=== PATIENT | female | born 1935 | race Caucasian/White ===

== ENCOUNTER → 2020-07-10 12:38 | Outpatient (CLI) | payer MEDICARE, OTHER, SELFPAY ==
--- NOTE | 2020-07-10 12:41 | DI.RAD.S_ITS ---
PROCEDURE: FL BARIUM SWALLOW W SPEECH INDICATIONS: Choking COMPARISON: None. TECHNIQUE: Examination was conducted in conjunction with speech pathology per standard protocol. In the lateral projection, filming was performed of the patient swallowing. AP projection filming may also be performed with patient swallowing. COMPARISON: FINDINGS: Function: The oral preparatory phase appears normal, with proper containment. The subsequent oral propulsive phase, pharyngeal phase, and esophageal phase of swallowing also appear normal with all proffered substances except for the presence of slight episodiic laryngotracheal penetration without aspiration. No pathologic vallecular pooling. Morphology: No cricopharyngeal bar is identified. No cervical esophageal webs. No Zenker's diverticulum. No strictures. IMPRESSION: Slight episodic anterior penetration without aspiration was noted during the course of the evaluation, but otherwise the examination appeared normal. Please also refer to the dedicated speech therapy swallowing evaluation report which will be independently generated. Dictated by: Manav Andrews M.D. on 07/10/2020 at 13:59 Approved by: Manav Andrews M.D. on 07/10/2020 at 14:01
--- NOTE | 2020-07-10 15:45 | ST.SWALLOW ---
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 Kenji Valle Reason for Referral Choking Setting Setting Outpatient Care Patient Information Identification Type Name,ID Card Patient History The pt is an 84-yr-old female with diagnosis of dementia who lives at home with her . Per 's report, the pt visited Dr. Valle to establish care and was observed by Dr. Valle to have some coughing with oral intake. reported no significant swallow difficulty at home but increasing SOB both with and without oral intake. He stated that the pt eats very little, only 1 meal/ day and a few snacks. Due to missing and broken teeth, she consumes soft foods. Subjective Observations The pt arrived on time and was brought into radiology room. She was unaware of why she was there and, when explained, denied swallow difficulties. She was unable to provide any other meaningful history. Her was consulted for case history and provided the details outlined above. The pt was informed of MBS procedures and was agreeable to proceed. Patient Positioning Position View Lateral Imaging Lateral View Textures Administered Trials Presented Thin Liquid via Spoon,Thin Liquid via Cup,[place] Liquid via Spoon,[place] Liquid via Cup,Honey Liquid via Spoon, Dysphagia Blenderized Textures ,Regular Textures Oral Phase Source: MBSIMP (TM) (C) Bolus Specific Scoring Grid Lip Closure WFL Tongue Control During Bolus Hold WFL Bolus Prep/Mastication Mild Impairment Bolus Transport/Lingual Motion WFL A/P Lingual Propulsion Delay No: Rapid Oral Residue Mild Impairment Residue Clearing WFL Nasal Regurgitation No Additional Oral Phase Observations Oral Peripheral Exam: Symmetrical features, mildly reduced strength and coordination consistent with age. The pt had difficulty following some directions but was able to with visual demonstration. The pt is missing several molars and others are broken. Her is aware and trying to schedule with her dentist. The pt did exhibit SOB with quick , shallow breaths throughout the study. Oral Phase: Pt has rapid a/p transfer of bolus. Bolus manipulation and formation appear to be WNL. Lingual rocking was observed after most trials, which may be the pt's attempt to manage oral residue, which was greatest with liquids and spilled to vallecula and occasionally to pyriform sinuses (thin liquid) . The pt did not independently initiate additional swallow of residue. No pocketing was observed. Mastication of cookie was WFL and appropriate given status of dentition. Pharyngeal Phase Source: MBSIMP (TM) (C) Bolus Specific Scoring Grid Delayed Initiation of Pharyngeal Swallow Yes: Greatest with thin and NTLs; improved w/ bolus bulk Soft Palate Elevation No Impairment (WNL) Tongue Base Strength/Range of Motion Mild Impairment Residue Along the Tongue Base Yes Clearance of Residue Along Tongue Base WFL Laryngeal Elevation WFL Anterior Hyoid Movement Minimal Impairment Epiglottic Range of Motion No Impairment (WNL) Vallecular Residue Yes: Greatest with liquids Clearance of Vallecular Residue WFL Laryngeal Vestibular Closure Mild Impairment Pharyngeal Stripping Wave WFL Posterior Pharyngeal Wall Residue Yes: Trace with liquids Clearance of Posterior Pharyngeal Wall WFL Residue Upper Esophageal Sphincter Opening No Impairment (WNL) Residue in the Pyriform Sinuses Yes: Greatest with liquids Clearance of Residue in the Pyriform WFL Sinuses Pharyngoesophageal Backflow Observed No Additional Pharyngeal Phase Observations Cricopharyngeal bar observed upon close video review; does not impede bolus flow. Flash penetration above the VFs (PAS 2) was observed with thin liquids during swallows. No residue remained in larynx after each swallow was completed, and no tracheal aspiration was observed. Pharyngeal residue was greatest with thin liquids, filling the vallecula from the oral cavity and once spilling to pyriform sinuses. No swallow reflex was triggered in the pt. Upon being cued to swallow, she did so, and this cleared all but trace amounts of residue. Swallow trigger was also delayed with thin liquids and NTLs; improved to WNL with increased bolus bulk. A/P View Clinical Impressions Dysphagia Type Mild Oropharyngeal Dysphagia Findings The pt presents with mild oropharyngeal dysphagia most likely secondary to age and reduced cognition. Oral dysphagia is secondary to poor dentition and characterized by slowed by functional mastication, mild oral residue . The pt exhibited lingual rocking/pumping after swallows , which may be in response to oral residue, breathing patterns, or simply an unconscious habitual movement sometimes observed with dementia. Pharyngeal swallow phase is characterized by delayed swallow trigger and incomplete closure of the laryngeal vestibule allowing for flash penetration of thin liquids. Closure appears to be adequate for increased bulk of thickened liquids and solids. Mild-moderate residue, particularly with thin and nectar-thick liquids, was observed and cleared with subsequent swallow, although the pt did not initiate such swallow independently. This could increase her risk of aspiration of pharyngeal residue. Prompts for double swallow is recommended. Given her cognitive status, the pt is not a good candidate for therapy; however, caregiver education and training in prompting of compensatory strategies and aspiration precautions may be beneficial to maintain the pt' s safety with oral intake. Rehabilitation Potential Fair Patient Appropriate for Therapy Caregiver training may be appropriate. Recommendations Diet Liquids Order Thin Diet Order Mechanical Soft Medication Recommendation As Tolerated Additional Dietary Needs 1:1 Supervision,Reminders to Use Strategies Aspiration Precautions Recommended Precautions Upright at 90 Degrees,Frequent Rest Periods,Small Bites/Sips ,Double Swallow Treatment Plan Therapy Recommendations Outpatient Speech Therapy Additional Therapy Recommendations Training in compensatory swallow strategies to pt/ caregiver Compensatory Strategies Recommendations Double Swallow,Small Bites and Sips Short Term Goals 1. The pt will perform compensatory swallow strategies (e.g., small bites/ sips, double swallow) with min -mod v/v cues to reduce risk of aspiration. 2. The pt's primary caregiver/ spouse will verbalize understanding of aspiration risks/precautions and demonstrate appropriate pt cuing of such to maintain/ improve pt safety with oral intake in her functional environment. [facility] Goals 1. With prompts provided as needed, the pt will safely tolerate least restrictive diet to meet her nutrition and hydration needs. Placement Recommendation After Discharge Home
--- NOTE | 2020-07-11 15:39 | ST.SWALLOW ---
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 Kenji Valle Reason for Referral Choking Setting Setting Outpatient Care Patient Information Identification Type Name,ID Card Patient History The pt is an 84-yr-old female with diagnosis of dementia who lives at home with her . Per 's report, the pt visited Dr. Valle to establish care and was observed by Dr. Valle to have some coughing with oral intake. reported no significant swallow difficulty at home but increasing SOB both with and without oral intake. He stated that the pt eats very little, only 1 meal/ day and a few snacks. Due to missing and broken teeth, she consumes soft foods. Subjective Observations The pt arrived on time and was brought into radiology room. She was unaware of why she was there and, when explained, denied swallow difficulties. She was unable to provide any other meaningful history. Her was consulted for case history and provided the details outlined above. The pt was informed of MBS procedures and was agreeable to proceed. Patient Positioning Position View Lateral Imaging Lateral View Textures Administered Trials Presented Thin Liquid via Spoon,Thin Liquid via Cup,[place] Liquid via Spoon,[place] Liquid via Cup,Honey Liquid via Spoon, Dysphagia Blenderized Textures ,Regular Textures Oral Phase Source: MBSIMP (TM) (C) Bolus Specific Scoring Grid Lip Closure WFL Tongue Control During Bolus Hold WFL Bolus Prep/Mastication Mild Impairment Bolus Transport/Lingual Motion WFL A/P Lingual Propulsion Delay No: Rapid Oral Residue Mild Impairment Residue Clearing WFL Nasal Regurgitation No Additional Oral Phase Observations Oral Peripheral Exam: Symmetrical features, mildly reduced strength and coordination consistent with age. The pt had difficulty following some directions but was able to with visual demonstration. The pt is missing several molars and others are broken. Her is aware and trying to schedule with her dentist. The pt did exhibit SOB with quick , shallow breaths throughout the study. Oral Phase: Pt has rapid a/p transfer of bolus. Bolus manipulation and formation appear to be WNL. Lingual rocking was observed after most trials, which may be the pt's attempt to manage oral residue, which was greatest with liquids and spilled to vallecula and occasionally to pyriform sinuses (thin liquid) . The pt did not independently initiate additional swallow of residue. No pocketing was observed. Mastication of cookie was WFL and appropriate given status of dentition. Pharyngeal Phase Source: MBSIMP (TM) (C) Bolus Specific Scoring Grid Delayed Initiation of Pharyngeal Swallow Yes: Greatest with thin and NTLs; improved w/ bolus bulk Soft Palate Elevation No Impairment (WNL) Tongue Base Strength/Range of Motion Mild Impairment Residue Along the Tongue Base Yes Clearance of Residue Along Tongue Base WFL Laryngeal Elevation WFL Anterior Hyoid Movement Minimal Impairment Epiglottic Range of Motion No Impairment (WNL) Vallecular Residue Yes: Greatest with liquids Clearance of Vallecular Residue WFL Laryngeal Vestibular Closure Mild Impairment Pharyngeal Stripping Wave WFL Posterior Pharyngeal Wall Residue Yes: Trace with liquids Clearance of Posterior Pharyngeal Wall WFL Residue Upper Esophageal Sphincter Opening No Impairment (WNL) Residue in the Pyriform Sinuses Yes: Greatest with liquids Clearance of Residue in the Pyriform WFL Sinuses Pharyngoesophageal Backflow Observed No Additional Pharyngeal Phase Observations Cricopharyngeal bar observed upon close video review; does not impede bolus flow. Flash penetration above the VFs (PAS 2) was observed with thin liquids during swallows. No residue remained in larynx after each swallow was completed, and no tracheal aspiration was observed. Pharyngeal residue was greatest with thin liquids, filling the vallecula from the oral cavity and once spilling to pyriform sinuses. No swallow reflex was triggered in the pt. Upon being cued to swallow, she did so, and this cleared all but trace amounts of residue. Swallow trigger was also delayed with thin liquids and NTLs; improved to WNL with increased bolus bulk. A/P View Clinical Impressions Dysphagia Type Mild Oropharyngeal Dysphagia Findings The pt presents with mild oropharyngeal dysphagia most likely secondary to age and reduced cognition. Oral dysphagia is secondary to poor dentition and characterized by slowed by functional mastication, mild oral residue . The pt exhibited lingual rocking/pumping after swallows , which may be in response to oral residue, breathing patterns, or simply an unconscious habitual movement sometimes observed with dementia. Pharyngeal swallow phase is characterized by delayed swallow trigger and incomplete closure of the laryngeal vestibule allowing for flash penetration of thin liquids. Closure appears to be adequate for increased bulk of thickened liquids and solids. Mild-moderate residue, particularly with thin and nectar-thick liquids, was observed and cleared with subsequent swallow, although the pt did not initiate such swallow independently. This could increase her risk of aspiration of pharyngeal residue. Prompts for double swallow is recommended. Given her cognitive status, the pt is not a good candidate for therapy; however, caregiver education and training in prompting of compensatory strategies and aspiration precautions may be beneficial to maintain the pt' s safety with oral intake. Rehabilitation Potential Fair Patient Appropriate for Therapy Caregiver training may be appropriate. Recommendations Diet Liquids Order Thin Diet Order Mechanical Soft Medication Recommendation As Tolerated Additional Dietary Needs 1:1 Supervision,Reminders to Use Strategies Aspiration Precautions Recommended Precautions Upright at 90 Degrees,Frequent Rest Periods,Small Bites/Sips ,Double Swallow Treatment Plan Therapy Recommendations Outpatient Speech Therapy Additional Therapy Recommendations Training in compensatory swallow strategies to pt/ caregiver Compensatory Strategies Recommendations Double Swallow,Small Bites and Sips Short Term Goals 1. The pt will perform compensatory swallow strategies (e.g., small bites/ sips, double swallow) with min -mod v/v cues to reduce risk of aspiration. 2. The pt's primary caregiver/ spouse will verbalize understanding of aspiration risks/precautions and demonstrate appropriate pt cuing of such to maintain/ improve pt safety with oral intake in her functional environment. Penitentiary Goals 1. With prompts provided as needed, the pt will safely tolerate least restrictive diet to meet her nutrition and hydration needs. Placement Recommendation After Discharge Home
== END ==
PROVIDERS: PCP Family Medicine; Referring Provider Family Medicine; Visit Provider Family Medicine
DX: R09.89 Other specified symptoms and signs involving the circulatory and respiratory systems (principal)
CPT/HCPCS: 74230; 92611